=== PATIENT | male | born 1950 | race Caucasian/White ===

== ENCOUNTER 2016-07-27 17:29 | Emergency (ER) | payer MEDICAID ==
--- NOTE | 2016-07-29 19:25 | ER ---
ADMIT: 07/27/2016 RM/LOC: ER [facility] MR#: [id number] [address] [address] TARYN SOMERS Mackenzie [address] [place] [address] Emergency Room Report SEX: M AGE: 65 : 1950 DATE: 07/27/2016 TIME: 1729. Please refer to my T-sheet for complete H and P. HISTORY OF PRESENT ILLNESS: Briefly, the patient is a 65-year-old who has been in here a couple of times and followed up with his primary over the last 5 weeks. He has been on a couple rounds of steroids and antibiotics x1, it has been Augmentin. He has continued to have this cough and cold symptoms, bringing up some phlegm. It is not improving. He states "he can't kick the cough." No severe radiating pain. He is using inhalers. They just do not seem to be helping, comes in for re-evaluation. He has appointment with the bus driver coming up he states. PHYSICAL EXAMINATION: VITAL SIGNS: Blood pressure is 148/95, pulse 121, respirations 22, temp 95.9, saturating 96%. GENERAL: He is in no acute distress. HEENT: Head is atraumatic, normocephalic. Pupils are equal, round, and reactive to light. Extraocular muscles intact. NECK: Soft, supple. LUNGS: Coarse with expiratory wheezes and prolonged expirations bilaterally and symmetrical. HEART: Tachy, no murmur. ABDOMEN: Soft. EXTREMITIES: No cyanosis, clubbing or edema. SKIN: No rash. EMERGENCY DEPARTMENT COURSE: His EKG was sinus rhythm, rate 96, no changes. CBC was normal except white count of 15. Chemistries normal except glucose 102, creatinine 1.4. His BNP was 232 and his troponin was negative. Chest x- ray revealed no obvious infiltrate. I gave him Decadron 20 IM and doxycycline ADMIT: 07/27/2016 RM/LOC: [facility] MR#: [id number] [id number] [address] TARYN SOMERS [address] [place] [address] Emergency Room Report SEX: M AGE: 65 : 1950 100 p.o., long discussion with him, he is ready for discharge. ASSESSMENT: Bronchitis, acute on chronic. It has become more chronic recently. He is definitely wheezing. He has a nebulizer at home. He has not improved with the above treatment. I am going to cover him for atypicals. He has appointment with the bus driver, I recommended he follow up. PLAN: Doxycycline 100 b.i.d. for 7 days. Prednisone 40, 30, 20, 10 two days each. Phenergan with codeine, I gave him 4 ounces. Return if worse. Continue his nebs and keep his appointment with his bus driver. Benigno Anglin MD/ quinton JOB #: [id number] CC: Benigno Anglin MD, Attending Physician Giulia Hurtado, Family Physician Giulia Hurtado, [employer] DEVELOPER-ADMINISTRATIVE RESIDENT
== END 2016-07-27 19:00 | disposition home or self-care (01) ==
LOC: ER 17:29
DX: J20.9 Acute bronchitis, unspecified (principal); I10 Essential (primary) hypertension

== ENCOUNTER → 2016-08-10 | Outpatient (CLI) | payer MEDICAID | END | disposition home or self-care (01) | LOC: RAD.S 08-09 08:30 | DX: R22.1 Localized swelling, mass and lump, neck (principal); R49.9 Unspecified voice and resonance disorder; R06.00 Dyspnea, unspecified; G47.10 Hypersomnia, unspecified; R49.8 Other voice and resonance disorders; Z72.820 Sleep deprivation ==

== ENCOUNTER → 2016-08-15 | Outpatient (CLI) | payer MEDICAID | END | disposition home or self-care (01) | LOC: RESC 08:40 | DX: R06.00 Dyspnea, unspecified (principal); G47.10 Hypersomnia, unspecified; R49.8 Other voice and resonance disorders; Z72.820 Sleep deprivation ==

== ENCOUNTER 2016-09-24 12:57 | Emergency (ER) | payer MEDICAID ==
--- NOTE | 2016-09-26 15:00 | NUR ---
Pt triggered as a high ED user. Attempted to contact pt. No answer, voice mail message left.
--- NOTE | 2016-09-27 00:34 | ER ---
ADMIT: 09/24/2016 RM/LOC: ER [facility] MR#: [id number] [address] [address] TARYN SOMERS [address] [place] [address] Emergency Room Report SEX: M AGE: 65 : 1950 DATE: 09/24/2016 TIME: 1257 hours. Please refer to my T-sheet for complete H and P. HISTORY OF PRESENT ILLNESS: Briefly, the patient is a 65-year-old, who comes in with back pain. Similarly in the past, it is his right lower back. No loss of bowel or bladder control. No injury. He has had chronic back problems, but he has done very well for 3 years. PHYSICAL EXAMINATION: VITAL SIGNS: Stable. BACK: He has muscle spasm in lower back. He has trouble moving. EMERGENCY DEPARTMENT COURSE: I gave him Dilaudid 1 mg IM, Flexeril 10 p.o. I had a long discussion. He is ready for discharge. DIAGNOSIS: Acute myofascial spasm. PLAN: [place] I gave him 12. Flexeril I gave him 15. Follow up with [facility]. Return if worse. Rest, ice, stretch. Benigno Anglin MD/ nikkol JOB #: [id number] CC: Benigno Anglin MD, Attending Physician
--- NOTE | 2016-09-28 11:24 | NUR ---
Attempted to contact pt. No answer, voice mail message left.
== END 2016-09-24 14:10 | disposition home or self-care (01) ==
LOC: ER 12:57
DX: S39.012A Strain of muscle, fascia and tendon of lower back, initial encounter (principal); M62.830 Muscle spasm of back; I10 Essential (primary) hypertension; Z79.899 Other long term (current) drug therapy; X58.XXXA Exposure to other specified factors, initial encounter

== ENCOUNTER 2016-10-08 13:24 | Emergency (ER) | payer MEDICAID ==
--- NOTE | 2016-10-21 08:25 | ER ---
ADMIT: 10/08/2016 RM/LOC: ER [facility] MR#: [id number] [facility] [address] [place] [address] TARYN SOMERS [address] [place] [address] Emergency Room Report SEX: M AGE: 65 : 1950 DATE: 10/08/2016 ADDENDUM: This patient comes into the ER because he has chronic back pain. He states he has not had to take pain medicine for quite a while, but he recently must have flared up his chronic back pain and now is having pain. He was seen here two weeks ago and given a shot of Toradol and 5 [place] which he states helped him. On physical exam, his pain is in his low back. He has no difficulty getting in and out of sitting position. I wrote a prescription for [place] 5 mg, dispensed 8; and for Valium 5 mg, dispensed 8. He is to follow up with his primary. Please see my T-sheet. MARIAH Canseco / Inocencio Nelson MD / quinton JOB #: [id number] CC: Inocencio Nelson MD, Attending Physician Giulia Hurtado APRN-EXTRUDER TENDER, Family Physician Marnie Resendiz MD
== END 2016-10-08 14:05 | disposition home or self-care (01) ==
LOC: ER 13:24
DX: M54.5 Low back pain (principal); G89.29 Other chronic pain; I10 Essential (primary) hypertension; Z95.5 Presence of coronary angioplasty implant and graft

== ENCOUNTER 2016-10-21 16:32 | Emergency (ER) | payer MEDICAID ==
--- NOTE | 2016-10-26 14:50 | ER ---
ADMIT: 10/21/2016 RM/LOC: ER [facility] MR#: [id number] [id number] [place], [place] [address] TARYN SOMERS [address] [place] [address] Emergency Room Report SEX: M AGE: 65 : 1950 DATE: 10/21/2016 See T-sheet for complete H and P. ADDENDUM: A 65-year-old male with chronic back pain, comes in with worsening back pain today. He states his mother who is in her 80s, felt too weak to get up from the couch today and he had to help her up and he had already been having some worsening of his baseline pain and since then, he has had increasing pain in his lumbar spine. He denies any loss of bowel or bladder function. No numbness, tingling, or weakness going down his legs. He is primarily having pain in his lumbar spine where he had a previous fracture a few years ago. It is worse with movement and it is somewhat tender to palpation. No imaging is done at this time and his neuro exam was unremarkable. He is given Valium and Toradol in the Emergency Department, will be discharged home with a prescription for Flexeril and Ultram and to follow up with Dr. Resendiz. DIAGNOSES: 1. Acute on chronic low back pain. 2. Lumbar strain. Rahul Alcantara MD/ quinton JOB #: [id number] CC: Inocencio Nelson MD, Attending Physician Giulia Hurtado, [employer], Family Physician
== END 2016-10-21 19:23 | disposition home or self-care (01) ==
LOC: ER 16:32
DX: S39.012A Strain of muscle, fascia and tendon of lower back, initial encounter (principal); G89.29 Other chronic pain; I10 Essential (primary) hypertension; I25.10 Atherosclerotic heart disease of native coronary artery without angina pectoris; Z95.5 Presence of coronary angioplasty implant and graft; Z79.899 Other long term (current) drug therapy; X50.1XXA Overexertion from prolonged static or awkward postures, initial encounter

== ENCOUNTER 2016-10-28 10:36 | Emergency (ER) | payer MEDICAID ==
--- NOTE | 2016-11-01 07:41 | ER ---
ADMIT: 10/28/2016 RM/LOC: ER [facility] MR#: [id number] [address] TARYN SOMERS [address] [place] [address] Emergency Room Report SEX: M AGE: 66 : 1950 DATE: 10/28/2016 ADDENDUM: CHIEF COMPLAINT: Low back pain. HISTORY OF PRESENT ILLNESS: This is a 66-year-old male who used to have a history of chronic back pain. He has actually been doing very well for the last [address] Resendiz's injections. He actually has an appointment coming up this Sunday, but just needs something to get him through until then. He has been having a little bit more pain for the last month and yesterday he was helping his mom, in fact he was lifting his mom and lifting a wheelchair, and then had sudden onset low back pain. He said he just again needs something to get him through until he sees Dr. Resendiz on Sunday. I am prescribing him tramadol 50 mg 1 tab every 6 hours as needed for pain, dispensing 20 and Valium 5 mg 1 tab every 8 hours as needed for muscle spasms, dispensing 15. CLINICAL IMPRESSION: Acute low back pain. MARIAH Araiza / Benigno Anglin MD / quinton JOB #: [id number] CC: Benigno Anglin MD, Attending Physician Marnie Resendiz MD, Family Physician
== END 2016-10-28 11:45 | disposition home or self-care (01) ==
LOC: ER 10:36
DX: M54.5 Low back pain (principal); I10 Essential (primary) hypertension; Z79.899 Other long term (current) drug therapy; Z79.82 Long term (current) use of aspirin